=== PATIENT | male | born 1980 | race Caucasian/White ===

== ENCOUNTER 2018-09-12 06:05 | Emergency (ER) | payer OTHER ==
[2018-09-12 06:30] VITALS: BMI 21.7
[2018-09-12] MEDS ORDERED: ONDANSETRON 4 MG/2 ML VIAL IVPUSH ONE (06:36)
[2018-09-12 06:57] LABS: BASO % 0.3 % (0-2.0); EOS % 0.7 % (0-4.5); HEMATOCRIT 39.6 % (35.4-49); HEMOGLOBIN 13.2 GM/dL (11.7-16.9); LYMPH % 16.1 % (8-40); MCH 28.8 pg (25.7-33.7); MCHC 33.5 g/dl (32.0-35.9); MEAN PLT VOLUME 9.2 fl (7.5-11.1); MONO % 10.5 % (3.8-10.2); NEUT % 72.4 % (42.8-82.8); PLATELET COUNT 211 K/MM3 (134-434); RDW 13.4 % (11.9-15.9); WHITE BLOOD COUNT 11.3 K/mm3 (4.0-10.0)
[2018-09-12 07:23] LABS: ALK PHOS 104 U/L (45-117); AMYLASE 87 U/L (25-115); ANION GAP 8 MMOL/L (8-16); BILIRUBIN,TOTAL 0.4 mg/dL (0.2-1); BLOOD UREA NITROGEN 11 mg/dL (7-18); CALCIUM 8.8 mg/dL (8.5-10.1); CHLORIDE 100 mmol/L (98-107); CO2 27 mmol/L (21-32); CREATININE 0.9 mg/dL (0.55-1.3); GLUCOSE,RANDOM 113 mg/dL (74-106); LIPASE 135 U/L (73-393); POTASSIUM 3.2 mmol/L (3.5-5.1); SGOT/AST 32 U/L (15-37); SGPT/ALT 50 U/L (13-61); SODIUM 135 mmol/L (136-145); TOT PROT 7.3 g/dl (6.4-8.2)
--- NOTE | 2018-09-12 07:51 | PDOC ---
History of Present Illness - General Chief Complaint: Vomiting/Diarrhea Stated Complaint: VOMITING,DIARRHEA,ABDOMINAL PAIN Time Seen by Provider: 09/12/18 07:51 History Source: Patient Exam Limitations: No Limitations - History of Present Illness Initial Comments: 38 yo M w no sig pmh presents with 1 day of nausea, vomiting, and abdominal pain after drinking what he thinks was 'bad milk.' Patient states he had milk with his coffee last night and ever since he has vomited 6 times and had 3 episodes of diarrhea. Both the diarrhea and vomitus was non-bloody. He denies having fever but endorses chills. He says his abdominal pain is all over his abdomen and not worse in any one specific region. He did not take any medications to make him feel better before the ED. When I evaluated him he had already received zofran and is no longer nauseous. He went to urgent care yesterday and they prescribed him azithromycin for 5 days. He denies any chest pain, SOB, difficulty breathing, fevers, back pain, headache , blurry vision, neck pain, dysuria, frequency, urgency, leg pain, recent travel. PCP: Faheem Bañuelos Allergies: NKA, NKDA Social Hx: Denies smoking, drinking or other substance usage. Past History - Past Medical History Allergies/Adverse Reactions: Allergies Allergy/AdvReac Type Severity Reaction Status Date / Time No Known Allergies Allergy Verified 09/12/18 06:19 Home Medications: Ambulatory Orders NK [No Known Home Medication] 09/12/18 COPD: No - Immunization History Immunization Up to Date: Yes - Suicide/Smoking/Psychosocial Hx Smoking History: Current some day smoker Have you smoked in the past 12 months: No Number of Cigarettes Smoked Daily: 2 Information on smoking cessation initiated: No Hx Alcohol Use: No Drug/Substance Use Hx: No Review of Systems - Review of Systems Able to Perform ROS?: Yes Comments:: CONSTITUTIONAL: Present: Chills Absent: fever, no fatigue EYES: Absent: visual changes ENT: Absent: ear pain, no sore throat CARDIOVASCULAR: Absent: chest pain, no palpitations RESPIRATORY: Absent: cough, no SOB GI: Present: Abdominal pain, nausea, vomiting, diarrhea Absent: no constipation GENITOURINARY: Absent: dysuria, no frequency, no hematuria MUSKULOSKELETAL: Absent: back pain, no arthralgia, no myalgia SKIN: Absent: rash NEURO: Absent: headache *Physical Exam - Vital Signs Last Vital Signs Temp Pulse Resp BP Pulse Ox 98.8 F 62 18 169/89 100 09/12/18 06:19 09/12/18 06:19 09/12/18 06:19 09/12/18 06:19 09/12/18 06:19 - Physical Exam Comments: GENERAL: Well-appearing, well-nourished. No apparent distress. HEENT: Normocephalic, atraumatic. PERRL, EOM intact. CARDIOVASCULAR: Normal S1, S2. Regular rate and rhythm. PULMONARY: Clear to auscultation bilaterally. ABDOMEN: diffusely uncomfortable. Soft, non-distended. Increased bowel sounds. No rebound or guarding. EXTREMITIES: Normal ROM in all four extremities. No gross deformities. SKIN: Warm, dry. No rash NEUROLOGICAL: No focal neurological deficits. Moderate Sedation - Procedure Monitoring Vital Signs: Procedure Monitoring Vital Signs Temperature 98.8 F 09/12/18 06:19 Pulse Rate 62 09/12/18 06:19 Respiratory Rate 18 09/12/18 06:19 Blood Pressure 169/89 09/12/18 06:19 O2 Sat by Pulse Oximetry (%) 100 09/12/18 06:19 ED Treatment Course - LABORATORY CBC & Chemistry Diagram: 09/12/18 06:26 09/12/18 06:26 - ADDITIONAL ORDERS Additional order review: Laboratory Results 09/12/18 06:26 Sodium 135 L Potassium 3.2 L Chloride 100 Carbon Dioxide 27 Anion Gap 8 BUN 11 Creatinine 0.9 Creat Clearance w eGFR > 60 Random Glucose 113 H Calcium 8.8 Total Bilirubin 0.4 AST 32 ALT 50 Alkaline Phosphatase 104 Total Protein 7.3 Albumin 4.0 Total Amylase 87 Lipase 135 09/12/18 06:26 RBC 4.60 MCV 86.0 MCHC 33.5 RDW 13.4 MPV 9.2 Neutrophils % 72.4 Lymphocytes % 16.1 Monocytes % 10.5 H Eosinophils % 0.7 Basophils % 0.3 - Medications Given in the ED: ED Medications Discontinued Medications Generic Name Dose Route Start Last Admin Trade Name Freq PRN Reason Stop Dose Admin Ondansetron HCl 4 mg 09/12/18 06:36 09/12/18 06:44 Zofran Injection IVPUSH 12/30/18 06:37 4 mg ONCE ONE Administration Medical Decision Making - Medical Decision Making 38 yo M w no sig pmh presents with 1 day of nausea, vomiting, and abdominal pain after drinking what he thinks was 'bad milk.' Patient states he had milk with his coffee last night and ever since he has vomited 6 times and had 3 episodes of diarrhea. DDx IBNLT: Gastroenteritis vs food poisoning, pancreatitis, IBD, dehydration, cholecystitis, appendicitis, diverticulitis Plan: Cbc, Cmp, lipase, IV hydration, zofran, acetaminophen, re-assess. Labs unremarkable, lipase WNL. - Patient feels much better after meds and IV hydration. - He states he would like to get out of here and can follow up with his PCP in the next 2 days. Will DC w pcp FU. *DC/Admit/Observation/Transfer Diagnosis at time of Disposition: Food poisoning - Discharge Dispostion Disposition: HOME Condition at time of disposition: Improved Decision to Admit order: No - Referrals Referrals: Faheem Bañuelos [Primary Care Provider] - - Patient Instructions Printed Discharge Instructions: How to Avoid Food Poisoning, DI for Food Poisoning Additional Instructions: You came into the ER with abdominal pain, nausea, and vomiting. You felt much better after taking zofran, tylenol and IV fluids. We believe you experienced food poisoning. Drink plenty of fluids and take tylenol or motrin for pain control. Please make sure to schedule a follow up appointment with your primary doctor in the next 2 to 3 days to make sure you are feeling okay and getting better. Please come back to the ER if your pain worsens, you start vomiting profusely, develop a high feer, severe abdominal pain, or have any other new or worsening concerns. Thank you for coming to the [facility] ER. We hope you feel better soon! Print Language: MAORI - Post Discharge Activity
[2018-09-12] MEDS ORDERED: ACETAMINOPHEN 1000 MG/100 ML VIAL (NON FORMULARY) IVPB ONE (07:54)
[2018-09-12] MEDS ORDERED: SODIUM CHLORIDE 0.9% 500 ML INFUS.BAG IV ONE (07:54)
[2018-09-12] MEDS ORDERED: POTASSIUM CHLORIDE TABS 20 MEQ TABLET.ER (FP) PO ONE (10:02)
--- NOTE | 2018-09-12 10:02 | PDOC ---
Attending Attestation - Resident Resident Name: ConcepciónJorge - ED Attending Attestation I have performed the following: I have examined & evaluated the patient, The case was reviewed & discussed with the resident, I agree w/resident's findings & plan, Exceptions are as noted - Medical Decision Making 09/12/18 10:02 I, Dr. Gillian Barney DO, attest that this document has been prepared under my direction and personally reviewed by me in its entirety. I further attest, that it accurately reflects all work, treatment, procedures and medical decision -making performed by me. 09/12/18 10:12 a/p: 38yo male with n/v/d -sick contacts at home -given zofran and ivf -pt feeling better -no vomiting in the ED -labs show mildly elevated wbc - suspect viral gastroenteritis vs food poisoning from bad milk used last night -will replace potassium -pt requesting to go home, states feeling better, tolerated PO in the ED -stbale for dc to home <Gillian Barney - Last Filed: 09/12/18 10:11> - HPI HPI: 09/12/18 10:47 The patient is a 38 year old male, with no significant PMH, who presents to the emergency department complaining of nausea, vomiting and abdominal pain that began approximately 1 day ago. The patient states he thinks he had bad milk with his coffee last night when he started to endorses associated symptoms of chills, diffuse abdomen pain, 6 times of non bilious and non bloody vomiting and 3 episodes of diarrhea. The patient denies chest pain, shortness of breath, headache and dizziness. Denies fever and constipation. Denies dysuria, frequency, urgency and hematuria. Allergies: NKDA Past surgical history:None reported Social history: None reported PCP: Faheem Bañuelos Documentation prepared by Simona Mijares, acting as medical research associate for Gillian Barney DO, MD. - Physicial Exam PE: 09/12/18 10:47 GENERAL: Awake, alert, and fully oriented, in no acute distress HEAD: No signs of trauma EYES: PERRLA, EOMI, sclera anicteric, conjunctiva clear ENT: Auricles normal inspection, hearing grossly normal, nares patent, oropharynx clear without exudates. Moist mucosa NECK: Normal ROM, supple, no lymphadenopathy, JVD, or masses LUNGS: Breath sounds equal, clear to auscultation bilaterally. No wheezes, and no crackles HEART: Regular rate and rhythm, normal S1 and S2, no murmurs, rubs or gallops ABDOMEN: Soft, nontender, normoactive bowel sounds. No guarding, no rebound. No masses EXTREMITIES: Normal range of motion, no edema. No clubbing or cyanosis. No cords, erythema, or tenderness NEUROLOGICAL: Cranial nerves II through XII grossly intact. Normal speech. SKIN: Warm, Dry, normal turgor, no rashes or lesions noted. Documentation prepared by Simona Mijares, acting as medical research associate for Gillian Barney DO, MD. <Simona Mijares - Last Filed: 09/12/18 10:48>
[2018-09-12 10:26] VITALS: BP 152/82; PULSE 67; TEMP 98.6
== END 2018-09-12 10:26 | disposition home or self-care (01) ==
LOC: JER 06:05
PROC: 3E033GC Introduction of Other Therapeutic Substance into Peripheral Vein, Percutaneous Approach (ICD-10-PCS; principal; 2018-09-12)
DX: T62.8X1A Toxic effect of other specified noxious substances eaten as food, accidental (unintentional), initial encounter (principal); Y92.018 Other place in single-family (private) house as the place of occurrence of the external cause
CPT/HCPCS: 36415; 80053; 82150; 83690; 85025; 99281-25; J0131

== ENCOUNTER 2019-05-06 13:12 | Day surgery (SDC) | payer OTHER ==
[2019-05-06 13:16] VITALS: BMI 21.9
[2019-05-06] MEDS ORDERED: KETOROLAC TROMETHAMINE 30 MG/1 ML VIAL IVPUSH ONE (14:00)
[2019-05-06] MEDS ORDERED: ONDANSETRON 4 MG/2 ML VIAL IVPUSH ONE (14:00)
--- NOTE | 2019-05-06 14:01 | PDOC ---
History of Present Illness - General Chief Complaint: Pain, Acute Stated Complaint: ABD PAIN Time Seen by Provider: 05/06/19 13:56 History Source: Patient Exam Limitations: No Limitations Past History - Travel Traveled outside of the country in the last 30 days: Yes If so, where?: Close contact w/someone who was outside of country & ill: No - Past Medical History Allergies/Adverse Reactions: Allergies Allergy/AdvReac Type Severity Reaction Status Date / Time No Known Allergies Allergy Verified 05/06/19 13:16 Home Medications: Ambulatory Orders NK [No Known Home Medication] 09/12/18 COPD: No - Immunization History Immunization Up to Date: Yes - Suicide/Smoking/Psychosocial Hx Smoking History: Never smoked Have you smoked in the past 12 months: No Number of Cigarettes Smoked Daily: 2 Hx Alcohol Use: No Drug/Substance Use Hx: No Review of Systems - Review of Systems Able to Perform ROS?: Yes Comments:: 05/06/19 14:52 CONSTITUTIONAL: Absent: fever, chills, diaphoresis, generalized weakness, malaise, loss of appetite HEENT: Absent: rhinorrhea, nasal congestion, throat pain, throat swelling, difficulty swallowing, mouth swelling, ear pain, eye pain, visual Changes CARDIOVASCULAR: Absent: chest pain, loss of consciousness, palpitations, irregular heart rate, peripheral edema RESPIRATORY: Absent: cough, shortness of breath, dyspnea with exertion, orthopnea, wheezing, stridor, hemoptysis GASTROINTESTINAL: Present: abdominal pain, nausea, vomiting Absent: abdominal pain, abdominal distension, nausea, vomiting, diarrhea, constipation, melena, hematochezia GENITOURINARY: Absent: dysuria, frequency, urgency, hesitancy, hematuria, flank pain, genital pain MUSCULOSKELETAL: Absent: myalgia, arthralgia, joint swelling SKIN: Absent: rash, itching, pallor HEMATOLOGIC/IMMUNOLOGIC: Absent: easy bleeding, easy bruising, lymphadenopathy, frequent infections ENDOCRINE: Absent: unexplained weight gain, unexplained weight loss, heat intolerance, cold intolerance NEUROLOGIC: Absent: headache, focal weakness or paresthesias, dizziness, unsteady gait, seizure, mental status changes, bladder or bowel incontinence PSYCHIATRIC: Absent: anxiety, depression, suicidal or homicidal ideation, hallucinations. Is the patient limited [place] proficient: No *Physical Exam - Vital Signs Last Vital Signs Temp Pulse Resp BP Pulse Ox 98.4 F 54 L 16 150/77 100 05/06/19 13:13 05/06/19 13:13 05/06/19 13:13 05/06/19 13:13 05/06/19 13:13 - Physical Exam Comments: 05/06/19 14:53 GENERAL: Well developed, well nourished. Awake and alert. Moderate distress, pt rolling on exam bed, cannot get comfortable. HEENT: Normocephalic, atraumatic. PERRLA, EOMI. No conjunctival pallor. Sclera are non- icteric. Moist mucous membranes. Oropharynx is clear. NECK: Supple. Full ROM. No JVD. Carotid pulses 2+ and symmetric, without bruits. No thyromegaly. No lymphadenopathy. CARDIOVASCULAR: Regular rate and rhythm. No murmurs, rubs, or gallops. Distal pulses are 2+ and symmetric. PULMONARY: No evidence of respiratory distress. Lungs clear to auscultation bilaterally. No wheezing, rales or rhonchi. ABDOMINAL: TTP of the RLQ, suprapubic area. (+) guarding. Soft. Non-distended. No rebound. No organomegaly. Normoactive bowel sounds. MUSCULOSKELETAL Normal range of motion at all joints. No bony deformities or tenderness. No CVA tenderness. EXTREMITIES: No cyanosis. No clubbing. No edema. No calf tenderness. SKIN: Warm and dry. Normal capillary refill. No rashes. No jaundice. NEUROLOGICAL: Alert, awake, appropriate. Cranial nerves 2-12 intact. No deficits to light touch and temperature in face, upper extremities and lower extremities. No motor deficits in the in face, upper extremities and lower extremities. Normoreflexic in the upper and lower extremities. Normal speech. Toes are down- going bilaterally. Gait is normal without ataxia. PSYCHIATRIC: Cooperative. Good eye contact. Appropriate mood and affect. ED Treatment Course - LABORATORY CBC & Chemistry Diagram: 05/07/19 06:00 05/07/19 06:00 Medical Decision Making - Medical Decision Making 05/06/19 14:56 The patient is a 38 y/o M with no PMH who presents to the ER today for lower abdominal pain. The patient states that his pain started around 9 am this morning. He last had coffee at 8:30 this morning. atient states that he has been throwing up and nauseous. He states he can't sit still due to the pain. Denies fevers, chills, shortness of breath, diarrhea, constipation, frequency, urgency and hemturia A/P: R lower abdominal pain/flank pain On exam pt TTP of the RLQ and R flank. Pt unable to sit still DDX: Kidney stone, appendicitis, diverticulitis, colitis, less likely UTI, viral illness Labs, CTAP Renal, urine, pain meds, ordered WBC count 14.9 with L shift, other labs are grossly normal. No UTI CTAP wet read with no stones; suspect appendicitis Pt pending official read Sign out given to DEL Rocha *DC/Admit/Observation/Transfer Diagnosis at time of Disposition: Appendicitis, acute - Discharge Dispostion Condition at time of disposition: Improved - Referrals - Patient Instructions - Post Discharge Activity
[2019-05-06] MEDS ORDERED: KETOROLAC TROMETHAMINE 30 MG/1 ML VIAL IM ONE (14:04)
[2019-05-06] MEDS ORDERED: SODIUM CHLORIDE 1,000 ML IV STA (14:05)
[2019-05-06] MEDS ORDERED: KETOROLAC TROMETHAMINE 30 MG/1 ML VIAL ONE ×2 (14:05→14:09)
[2019-05-06] MEDS ORDERED: ONDANSETRON 4 MG/2 ML VIAL ONE (14:09)
[2019-05-06] MEDS ORDERED: morphine CARPU-JECT 4 MG/1 ML DISP.SYRIN IVPUSH ONE (14:52)
[2019-05-06] MEDS ORDERED: ACETAMINOPHEN 1000 MG/100 ML VIAL (NON FORMULARY) IVPB ONE (14:52)
[2019-05-06] MEDS ORDERED: morphine SULFATE 4 MG/ML VIAL ONE (15:16)
[2019-05-06] MEDS ORDERED: ACETAMINOPHEN INJECTION 100 ML IVPB ONE ×2 (15:16→21:09)
[2019-05-06 15:19] LABS: BASO % 0.2 % (0-2.0); EOS % 0.1 % (0-4.5); HEMATOCRIT 40.2 % (35.4-49); HEMOGLOBIN 13.7 GM/dL (11.7-16.9); LYMPH % 6.9 % (8-40); MCH 29.9 pg (25.7-33.7); MCHC 34.1 g/dl (32.0-35.9); MEAN CELL VOLUME 87.7 fl (80-96); MEAN PLT VOLUME 9.3 fl (7.5-11.1); MONO % 3.4 % (3.8-10.2); NEUT % 89.4 % (42.8-82.8); PLATELET COUNT 216 K/MM3 (134-434); RBC 4.59 M/mm3 (4.00-5.60); RDW 13.6 % (11.9-15.9); WHITE BLOOD COUNT 14.9 K/mm3 (4.0-10.0)
[2019-05-06 15:23] LABS: URINE APPEARANCE CLOUDY; URINE BILIRUBIN NEGATIVE (NEGATIVE); URINE COLOR YELLOW; URINE GLUCOSE (UA) NEGATIVE (NEGATIVE); URINE KETONE NEGATIVE (NEGATIVE); URINE LEUK ESTERASE NEGATIVE (NEGATIVE); URINE NITRITE NEGATIVE (NEGATIVE); URINE PROTEIN NEGATIVE (NEGATIVE); URINE UROBILINOGEN 0.2 mg/dL (0.2-1.0)
[2019-05-06 15:31] LABS: INR 0.99 (0.83-1.09); PROTHROMBIN TIME (PATIENT) 11.7 SEC (9.7-13.0)
[2019-05-06 15:51] LABS: ALBUMIN 4.2 g/dl (3.4-5.0); BILIRUBIN,TOTAL 0.8 mg/dL (0.2-1); CREATININE 0.9 mg/dL (0.55-1.3); POTASSIUM 3.4 mmol/L (3.5-5.1); TOT PROT 7.8 g/dl (6.4-8.2)
--- NOTE | 2019-05-06 16:47 | PDOC ---
*Physical Exam - Vital Signs Last Vital Signs Temp Pulse Resp BP Pulse Ox 98.4 F 54 L 16 150/77 100 05/06/19 13:13 05/06/19 13:13 05/06/19 13:13 05/06/19 13:13 05/06/19 13:13 - Physical Exam General Appearance: Yes: Nourished, Appropriately Dressed HEENT: positive: Normal ENT Inspection Neck: positive: Supple Respiratory/Chest: positive: Lungs Clear, Normal Breath Sounds. negative: Respiratory Distress, Accessory Muscle Use Cardiovascular: positive: Regular Rhythm, Regular Rate Musculoskeletal: positive: Normal Inspection Extremity: positive: Normal Inspection Integumentary: positive: Normal Color Neurologic: positive: Fully Oriented, Alert, Normal Response ED Treatment Course - LABORATORY CBC & Chemistry Diagram: 05/06/19 15:06 05/06/19 15:06 - ADDITIONAL ORDERS Additional order review: Laboratory Results 05/06/19 05/06/19 05/06/19 15:06 15:06 15:06 PT with INR 11.70 INR 0.99 Sodium 137 Potassium 3.4 L Chloride 101 Carbon Dioxide 28 Anion Gap 8 BUN 13.0 Creatinine 0.9 Est GFR (CKD-EPI)AfAm 125.13 Est GFR (CKD-EPI)NonAf 107.97 Random Glucose 102 Calcium 9.0 Total Bilirubin 0.8 AST 33 ALT 37 Alkaline Phosphatase 114 Total Protein 7.8 Albumin 4.2 Urine Color Yellow Urine Appearance Cloudy Urine pH 7.0 Ur Specific Comins 1.020 Urine Protein Negative Urine Glucose (UA) Negative Urine Ketones Negative Urine Blood Negative Urine Nitrite Negative Urine Bilirubin Negative Urine Urobilinogen 0.2 Ur Leukocyte Esterase Negative 05/06/19 15:06 RBC 4.59 MCV 87.7 MCHC 34.1 RDW 13.6 MPV 9.3 Neutrophils % 89.4 H D Lymphocytes % 6.9 L D Monocytes % 3.4 L Eosinophils % 0.1 D Basophils % 0.2 - Medications Given in the ED: ED Medications Discontinued Medications Generic Name Dose Route Start Last Admin Trade Name Freq PRN Reason Stop Dose Admin Acetaminophen 1,000 mg 05/06/19 14:52 05/06/19 15:26 Ofirmev Injection - IVPB 05/06/19 14:53 1,000 mg ONCE ONE Administration Sodium Chloride 1,000 mls @ 1,000 mls/hr 05/06/19 14:05 05/06/19 15:26 Normal Saline - IV 05/06/19 15:04 1,000 mls/hr ASDIR STA Administration Ketorolac Tromethamine 30 mg 05/06/19 14:00 05/06/19 15:27 Toradol Injection - IVPUSH 05/06/19 14:01 Not Given ONCE ONE Ketorolac Tromethamine 30 mg 05/06/19 14:04 05/06/19 15:12 Toradol Injection - IM 05/06/19 14:05 30 mg ONCE ONE Administration Morphine Sulfate 4 mg 05/06/19 14:52 05/06/19 15:26 Morphine Injection - IVPUSH 05/06/19 14:53 4 mg ONCE ONE Administration Ondansetron HCl 4 mg 05/06/19 14:00 05/06/19 15:26 Zofran Injection IVPUSH 05/06/19 14:01 4 mg ONCE ONE Administration Medical Decision Making - Medical Decision Making 05/06/19 17:04 I resumed care of this 38-year-old male with no medical history present with complaint of lower abdominal pain with nausea and vomiting since this morning. Patient reported improvement in abdominal pain with IV Toradol and Zofran given by previous team. CBC shows elevated WBC of 16. Abdominal CT shows appendicitis. Called and spoke to surgical Dr. Lou who advised to admit the patient on the hospitalist for appendicitis management and was see patient for management of appendicitis and ordered for admission in place. Microblog sent to hospitalist team placed for admission 05/06/19 17:45 Patient seen by hospitalist team and admitted under Tommie Christine. called by OR nurse to prep patient for surgery as Dr. Lou will be operating for appendicitis tonight. Plan discussed with patient and pt agrees for surgery. pt NPO for 7hrs now *DC/Admit/Observation/Transfer Diagnosis at time of Disposition: Appendicitis, acute Qualifiers: Acute appendicitis type: unspecified acute appendicitis type Qualified Code(s) : K35.80 - Unspecified acute appendicitis - Discharge Dispostion Condition at time of disposition: Stable Decision to Admit order: Yes - Referrals - Patient Instructions - Post Discharge Activity
--- NOTE | 2019-05-06 17:16 | CONSULT ---
- Consultation REQUESTING PROVIDER: jA MATHIS CONSULT REQUEST: We have been asked to surgically evaluate this patient for acute appendicitis. PCP: HISTORY OF PRESENT ILLNESS: 38 y/o male in his USOH presented w/RLQ abdominal pain which started this morning; he had nausea w/o vomting and has sharp pain increased by moving around and better while lying still; no radiation from the RLQ; it did start as generalized; he denies injury or any other GI/ c/o; he works as a cook. PMHx: none PSHx: none Home Medications Medication Instructions Recorded NK [No Known Home Medication] 09/12/18 Allergies Allergy/AdvReac Type Severity Reaction Status Date / Time No Known Allergies Allergy Verified 05/06/19 13:16 REVIEW OF SYSTEMS: CONSTITUTIONAL: Absent: fever, chills, diaphoresis, generalized weakness, malaise, loss of appetite, weight change CARDIOVASCULAR: Absent: chest pain, syncope, palpitations, irregular heart rate, lightheadedness , peripheral edema RESPIRATORY: Absent: cough, shortness of breath, dyspnea with exertion, wheezing, stridor, hemoptysis GASTROINTESTINAL: Absent: abdominal pain, abdominal distension, nausea, vomiting, diarrhea, constipation, melena, hematochezia GENITOURINARY: Absent: dysuria, frequency, urgency, hesitancy, hematuria, flank pain, genital pain MUSCULOSKELETAL: Absent: myalgia, arthralgia, joint swelling, back pain, neck pain SKIN: Absent: rash, itching, pallor HEMATOLOGIC/IMMUNOLOGIC: Absent: easy bleeding, easy bruising, lymphadenopathy NEUROLOGIC: Absent: headache, focal weakness, paresthesias, dizziness, unsteady gait, seizure, mental status changes, bladder or bowel incontinence PSYCHIATRIC: Absent: anxiety, depression, suicidal or homicidal ideation, hallucinations. PHYSICAL EXAM: GENERAL: Awake, alert, and fully oriented, in no acute distress. HEAD: Normal with no signs of trauma. EYES: PERRL, sclera anicteric, conjunctiva clear. NECK: Normal ROM, supple without lymphadenopathy, JVD, or masses. ABDOMEN: Soft, tender RLQ to palpation, not distended, normoactive bowel sounds , voluntary guarding, rebound is present, no masses, no hernias. Rovsings' psoas and obturator signs are present. No organomegaly. MUSCULOSKELETAL: Normal ROM at all joints. No bony deformities or tenderness. No CVA tenderness. UPPER EXTREMITIES: 2+ pulses, warm, well-perfused. No cyanosis. Cap refill <2 seconds. No peripheral edema. LOWER EXTREMITIES: 2+ pulses, warm, well-perfused. No calf tenderness. No peripheral edema. NEUROLOGICAL: Normal speech, gait not observed. PSYCH: Cooperative. Good eye contact. Appropriate mood and affect. SKIN: Warm, dry, normal turgor, no rashes or lesions noted. Vital Signs Temperature 98.4 F 05/06/19 13:13 Pulse Rate 54 L 05/06/19 13:13 Respiratory Rate 16 05/06/19 13:13 Blood Pressure 150/77 05/06/19 13:13 O2 Sat by Pulse Oximetry (%) 100 05/06/19 13:13 Lab Results WBC 14.9 K/mm3 (4.0-10.0) H 05/06/19 15:06 RBC 4.59 M/mm3 (4.00-5.60) 05/06/19 15:06 Hgb 13.7 GM/dL (11.7-16.9) 05/06/19 15:06 Hct 40.2 % (35.4-49) 05/06/19 15:06 MCV 87.7 fl (80-96) 05/06/19 15:06 MCHC 34.1 g/dl (32.0-35.9) 05/06/19 15:06 RDW 13.6 % (11.9-15.9) 05/06/19 15:06 Plt Count 216 K/MM3 (134-434) 05/06/19 15:06 Sodium 137 mmol/L (136-145) 05/06/19 15:06 Potassium 3.4 mmol/L (3.5-5.1) L 05/06/19 15:06 Chloride 101 mmol/L (98-107) 05/06/19 15:06 Carbon Dioxide 28 mmol/L (21-32) 05/06/19 15:06 Anion Gap 8 MMOL/L (8-16) 05/06/19 15:06 BUN 13.0 mg/dL (7-18) 05/06/19 15:06 Creatinine 0.9 mg/dL (0.55-1.3) 05/06/19 15:06 Random Glucose 102 mg/dL (74-106) 05/06/19 15:06 Calcium 9.0 mg/dL (8.5-10.1) 05/06/19 15:06 INR 0.99 (0.83-1.09) 05/06/19 15:06 CT a/p reviewed and c/w acute appendicitis IMP: acute appendicitis PLAN: For lap appendectomy possible open; r/b/t/a's d/w the patient and informed consent for surgery obtained; d/w the patient in [place] and [place] and w/his present whom I have operated on in the past. Wesley Lou MD FACS
[2019-05-06] MEDS ORDERED: PIPERACILLIN/TAZOB 3.375 GM 3.375 GM in DEXTROSE 5%-WATER - 50 ML IVPB ONE (17:44)
[2019-05-06] MEDS ORDERED: PIPERACILLIN/TAZOB 3.375 GM 3.375 GM/50 ML BAG IVPB ONE (17:55)
[2019-05-06] MEDS ORDERED: MIDAZOLAM HCL 2 MG/2 ML SINGLE DOSE VIAL ONE (18:11)
[2019-05-06] MEDS ORDERED: SODIUM CHLORIDE 1,000 ML IV SCH (18:15)
[2019-05-06] MEDS ORDERED: ROCURONIUM BROMIDE 50 MG/5 ML SYRINGE ONE (18:20)
[2019-05-06] MEDS ORDERED: SUCCINYLCHOLINE CHLORIDE 200 MG/10 ML SYRINGE ONE (18:20)
[2019-05-06] MEDS ORDERED: PROPOFOL 20 ML ONE ×2 (18:20→19:13)
[2019-05-06] MEDS ORDERED: LIDOCAINE HCL/PF 2% SDV 5ML VIAL ONE (18:20)
[2019-05-06] MEDS ORDERED: DEXAMETHASONE SOD PHOSPHATE 4 MG/1 ML VIAL ONE (18:20)
--- NOTE | 2019-05-06 18:20 | PN ---
Teaching Attending Note Name of Resident: Gail Storey ATTENDING PHYSICIAN STATEMENT I saw and evaluated the patient. I reviewed the resident's note and discussed the case with the resident. I agree with the resident's findings and plan as documented. SUBJECTIVE: This is a 38 year old man with no significant past medical history who comes to the ED complaining of abdominal pain that started this morning. Pain is located in the RLQ and is associated with nausea and vomiting. He denies fever, chills, hematemesis, diarrhea, constipation, melena, rectal bleeding. OBJECTIVE: Vital Signs Period Temp Pulse Resp BP Sys/Antunez Pulse Ox Last 24 Hr 98.4 F 54 16 150/77 100 HEART: S1S2, RRR LUNGS: Clear ABDOMEN: Soft, non-distended, (+) RLQ tenderness, normal BS EXTREMITIES: No edema Laboratory Tests 05/06/19 05/06/19 05/06/19 15:06 15:06 15:06 WBC 14.9 H RBC 4.59 Hgb 13.7 Hct 40.2 MCV 87.7 MCH 29.9 MCHC 34.1 RDW 13.6 Plt Count 216 MPV 9.3 Absolute Neuts (auto) 13.3 H Neutrophils % 89.4 H D Lymphocytes % 6.9 L D Monocytes % 3.4 L Eosinophils % 0.1 D Basophils % 0.2 Nucleated RBC % 0 PT with INR 11.70 INR 0.99 Sodium 137 Potassium 3.4 L Chloride 101 Carbon Dioxide 28 Anion Gap 8 BUN 13.0 Creatinine 0.9 Est GFR (CKD-EPI)AfAm 125.13 Est GFR (CKD-EPI)NonAf 107.97 Random Glucose 102 Calcium 9.0 Total Bilirubin 0.8 AST 33 ALT 37 Alkaline Phosphatase 114 Total Protein 7.8 Albumin 4.2 Urine Color Urine Appearance Urine pH Ur Specific [place] Urine Protein Urine Glucose (UA) Urine Ketones Urine Blood Urine Nitrite Urine Bilirubin Urine Urobilinogen Ur Leukocyte Esterase 05/06/19 15:06 WBC RBC Hgb Hct MCV MCH MCHC RDW Plt Count MPV Absolute Neuts (auto) Neutrophils % Lymphocytes % Monocytes % Eosinophils % Basophils % Nucleated RBC % PT with INR INR Sodium Potassium Chloride Carbon Dioxide Anion Gap BUN Creatinine Est GFR (CKD-EPI)AfAm Est GFR (CKD-EPI)NonAf Random Glucose Calcium Total Bilirubin AST ALT Alkaline Phosphatase Total Protein Albumin Urine Color Yellow Urine Appearance Cloudy Urine pH 7.0 Ur Specific [place] 1.020 Urine Protein Negative Urine Glucose (UA) Negative Urine Ketones Negative Urine Blood Negative Urine Nitrite Negative Urine Bilirubin Negative Urine Urobilinogen 0.2 Ur Leukocyte Esterase Negative Home Medications Medication Instructions Recorded NK [No Known Home Medication] 09/12/18 ASSESSMENT AND PLAN: This is a 38 year old man with no significant past medical history who presented to the ED with RLQ abdominal pain, nausea, and vomiting. 1. Acute appendicitis - Surgery consult appreciated - Zosyn given in ED - NPO - IV fluid - Plan for appendectomy today 2. Hypokalemia - Replete potassium
[2019-05-06] MEDS ORDERED: BUPIVACAINE HCL/PF 0.5% (5 MG/ML) 30 ML VIAL IJ ONE ×2 (18:43→19:54)
[2019-05-06] MEDS ORDERED: ONDANSETRON 4 MG/2 ML VIAL IVPUSH PRN ×2 (18:53→20:31)
[2019-05-06] MEDS ORDERED: LACTATED RINGERS SOLUTION 1,000 ML IV SCH (19:00)
[2019-05-06] MEDS ORDERED: MORPHINE SULFATE 2 MG/ML VIAL IM PRN (19:25)
--- NOTE | 2019-05-06 19:25 | HP ---
Admitting History and Physical - Admission Chief Complaint: abominal pain- patient states that his abdominal pain started early this morning , he has never had this before- he had some episdoes of nausea and vomtiting - states that the pain was an 8/10 in his RLQ area and he was very unbearable that he came to the ED this has never happened to him before. he has no significant PMH History of Present Illness: patient states that his abdominal pain started early this morning , he has never had this before- he had some episdoes of nausea and vomtiting - states that the pain was an 8/10 in his RLQ area and he was very unbearable that he came to the ED this has never happened to him before. he has no significant PMH History Source: Patient Limitations to Obtaining History: No Limitations - Smoking History Smoking history: Never smoked Have you smoked in the past 12 months: No Aproximately how many cigarettes per day: 2 - Alcohol/Substance Use Hx Alcohol Use: No Home Medications - Allergies Allergies/Adverse Reactions: Allergies Allergy/AdvReac Type Severity Reaction Status Date / Time No Known Allergies Allergy Verified 05/06/19 13:16 - Home Medications Home Medications: Ambulatory Orders NK [No Known Home Medication] 09/12/18 Family Disease History - Family Disease History Family Disease History: Diabetes: Father, Heart Disease: Mother Review of Systems - Review of Systems Gastrointestinal: reports: Abdominal Pain Physical Examination Vital Signs: Vital Signs Temperature 98.7 F 05/06/19 18:00 Pulse Rate 63 05/06/19 18:00 Respiratory Rate 18 05/06/19 18:00 Blood Pressure 118/60 05/06/19 18:00 O2 Sat by Pulse Oximetry (%) 98 05/06/19 18:00 Constitutional: Yes: No Distress Cardiovascular: Yes: Regular Rate and Rhythm Respiratory: Yes: Regular, CTA Bilaterally Gastrointestinal: Yes: Soft, Tenderness, Epigastrium Labs: CBC, BMP 05/06/19 15:06 05/06/19 15:06 Problem List - Problems (1) Appendicitis, acute Code(s): K35.80 - UNSPECIFIED ACUTE APPENDICITIS Qualifiers: Acute appendicitis type: unspecified acute appendicitis type Qualified Code (s): K35.80 - Unspecified acute appendicitis Assessment/Plan patient currently in the OR for [facility]. navarrete on board NPO IVF received 1 dose of zosyn pre-procedure morphine prn for pain zofran prn for nausea Visit type - Emergency Visit Emergency Visit: Yes Care time: The patient presented to the Emergency Department on the above date and was hospitalized for further evaluation of their emergent condition. - New Patient This patient is new to me today: Yes Date on this admission: 05/06/19 - Critical Care Critical Care patient: No ATTENDING PHYSICIAN STATEMENT I saw and evaluated the patient. I reviewed the resident's note and discussed the case with the resident. I agree with the resident's findings and plan as documented. SUBJECTIVE: OBJECTIVE: ASSESSMENT AND PLAN:
[2019-05-06] MEDS ORDERED: NEOSTIGMINE METHYLSULFATE 0.5 MG/ML - 10 ML MDV ONE (19:52)
[2019-05-06] MEDS ORDERED: GLYCOPYRROLATE 0.2 MG/1 ML VIAL ONE (19:53)
--- NOTE | 2019-05-06 20:18 | OP ---
Operative Note - Note: Operative Date: 05/06/19 Pre-Operative Diagnosis: acute appendicitis Operation: laparoscopic appendectomy Findings: acute appendicitis Post-Operative Diagnosis: Same as Pre-op Surgeon: Wesley Lou Anesthesiologist/BLAST FURNACE BLOWER: Faheem Conti Anesthesia: General Specimens Removed: appendix Estimated Blood Loss (mls): 5 Drains & Tubes with Location: none
[2019-05-06] MEDS ORDERED: ACETAMINOPHEN 1000 MG/100 ML VIAL (NON FORMULARY) IVPB PRN (20:20)
[2019-05-06] MEDS: LACTATED RINGERS SOLUTION 1,000 ML IV SCH (21:30)
[2019-05-07] MEDS: LACTATED RINGERS SOLUTION 1,000 ML IV SCH (06:30)
[2019-05-07 07:16] LABS: BASO % 0.2 % (0-2.0); HEMATOCRIT 37.7 % (35.4-49); HEMOGLOBIN 12.9 GM/dL (11.7-16.9); LYMPH % 7.5 % (8-40); MCH 30.2 pg (25.7-33.7); MCHC 34.2 g/dl (32.0-35.9); MEAN CELL VOLUME 88.2 fl (80-96); MONO % 4.2 % (3.8-10.2); NEUT % 88.1 % (42.8-82.8); PLATELET COUNT 210 K/MM3 (134-434); RBC 4.28 M/mm3 (4.00-5.60); RDW 13.5 % (11.9-15.9); WHITE BLOOD COUNT 13.7 K/mm3 (4.0-10.0)
[2019-05-07 07:33] LABS: ALBUMIN 3.2 g/dl (3.4-5.0); BILIRUBIN,TOTAL 0.6 mg/dL (0.2-1); BLOOD UREA NITROGEN 11.4 mg/dL (7-18); CALCIUM 8.2 mg/dL (8.5-10.1); MAGNESIUM 1.8 mg/dL (1.8-2.4); TOT PROT 6.5 g/dl (6.4-8.2)
--- NOTE | 2019-05-07 10:23 | PN ---
Progress Note (short form) - Note Progress Note: Attending Surgeon POD#1 No c/o; tolerated diet and voided VSS AF abdo-soft; flat and tender at the port sites; o/w negative WBC 13.7 (trending down ) IMP: stable post op course. PLAN: May be d/c'ed to office f/u next week; a/a/u by the patient. Wesley Lou MD FACS
--- NOTE | 2019-05-07 10:40 | OP ---
DATE OF OPERATION: 05/06/2019 PREOPERATIVE DIAGNOSIS: Acute appendicitis. POSTOPERATIVE DIAGNOSIS: Acute appendicitis. PROCEDURE: Laparoscopic appendectomy. SURGEON: Wesley Lou MD ANESTHESIA: General. OPERATIVE FINDINGS: Acute supportive appendicitis without abscess or phlegmon or perforation or gangrene. DESCRIPTION OF PROCEDURE: The patient was placed on the operating table in supine position. After the induction of general anesthesia and placement of a Hardwick catheter, the patient's lower abdomen was prepped with ChloraPrep and draped in sterile fashion. A timeout was taken and pneumoperitoneum established above the umbilicus using a Kathy needle to an intraabdominal pressure of 15 mmHg. A 5- mm supraumbilical port was placed and laparoscopy carried out, and the previously noted findings were observed after the placement of a 12-mm suprapubic port and left lower quadrant 5-mm port. The appendix was identified at the confluence of the taenia of the cecum and the appendix grasped and the mesoappendix serially divided using the LigaSure device. Once the mesentery was cleared to the base of the appendix, a 45-mm purple load Endo MAURIZIO stapling device was fired across the base of the appendix. The appendix was then placed in an Endocatch and brought up through the abdominal wall. The suture line was examined for bleeding, of which there was none, and then the appendix was brought out through the suprapubic port without incident. Pneumoperitoneum was reestablished without evidence of bleeding, and then all port sites removed under laparoscopic vision without evidence of bleeding from the port sites. The pneumoperitoneum was evacuated, and all port sites were infiltrated with 0.5% Marcaine. The defect at the 12-mm suprapubic port site was closed with a single 0 Vicryl [id number] suture. All skin incisions were closed with field of vision in a subcuticular continuous fashion, followed by Steri-Strips and Band-Aid dressings, and the patient was aroused from general anesthesia and transferred to the postanesthesia care unit in stable condition, awake and alert. ESTIMATED BLOOD LOSS: 5 mL. REPLACEMENT: Crystalloid. DRAINS: None. SPECIMEN: Appendix to pathology. I, Wesley Lou, was physically present in the operating room from the time the patient was placed on the operating table until he was transferred to the postanesthesia care unit in my accompaniment. MD NEW Jamison/[id number] MTDD
[2019-05-07] MEDS: ACETAMINOPHEN 325 MG TABLET (FP) PO PRN ×2 (13:05→19:18)
--- NOTE | 2019-05-07 14:56 | DS ---
Physical Exam: SUBJECTIVE: Patient seen and examined. He has some incisional pain, otherwise he has no complaints. He is tolerating a diet and ambulating without difficulty. OBJECTIVE: Vital Signs Period Temp Pulse Resp BP Sys/Antunez Pulse Ox Last 24 Hr 97.5 F-98.7 F 55-83 14-20 98-130/46-75 98-100 PHYSICAL EXAM GENERAL: The patient is awake, alert, and fully oriented, in no acute distress. LUNGS: Breath sounds equal, clear to auscultation bilaterally, no wheezes, no crackles, no accessory muscle use. HEART: Regular rate and rhythm, S1, S2 without murmur, rub or gallop. ABDOMEN: Soft, nontender, nondistended, normoactive bowel sounds, no guarding, no rebound, no hepatosplenomegaly, no masses. EXTREMITIES: 2+ pulses, warm, well-perfused, no edema. LABS Laboratory Results - last 24 hr 05/06/19 05/06/19 05/06/19 15:06 15:06 15:06 WBC 14.9 H RBC 4.59 Hgb 13.7 Hct 40.2 MCV 87.7 MCH 29.9 MCHC 34.1 RDW 13.6 Plt Count 216 MPV 9.3 Absolute Neuts (auto) 13.3 H Neutrophils % 89.4 H D Lymphocytes % 6.9 L D Monocytes % 3.4 L Eosinophils % 0.1 D Basophils % 0.2 Nucleated RBC % 0 PT with INR 11.70 INR 0.99 Sodium 137 Potassium 3.4 L Chloride 101 Carbon Dioxide 28 Anion Gap 8 BUN 13.0 Creatinine 0.9 Est GFR (CKD-EPI)AfAm 125.13 Est GFR (CKD-EPI)NonAf 107.97 Random Glucose 102 Calcium 9.0 Magnesium Total Bilirubin 0.8 AST 33 ALT 37 Alkaline Phosphatase 114 Total Protein 7.8 Albumin 4.2 Urine Color Urine Appearance Urine pH Ur Specific [place] Urine Protein Urine Glucose (UA) Urine Ketones Urine Blood Urine Nitrite Urine Bilirubin Urine Urobilinogen Ur Leukocyte Esterase Blood Type Antibody Screen 05/06/19 05/06/19 05/07/19 15:06 15:06 06:00 WBC 13.7 H RBC 4.28 Hgb 12.9 Hct 37.7 MCV 88.2 MCH 30.2 MCHC 34.2 RDW 13.5 Plt Count 210 MPV 10.0 Absolute Neuts (auto) 12.1 H Neutrophils % 88.1 H Lymphocytes % 7.5 L Monocytes % 4.2 Eosinophils % 0.0 D Basophils % 0.2 Nucleated RBC % 0 PT with INR INR Sodium Potassium Chloride Carbon Dioxide Anion Gap BUN Creatinine Est GFR (CKD-EPI)AfAm Est GFR (CKD-EPI)NonAf Random Glucose Calcium Magnesium Total Bilirubin AST ALT Alkaline Phosphatase Total Protein Albumin Urine Color Yellow Urine Appearance Cloudy Urine pH 7.0 Ur Specific [place] 1.020 Urine Protein Negative Urine Glucose (UA) Negative Urine Ketones Negative Urine Blood Negative Urine Nitrite Negative Urine Bilirubin Negative Urine Urobilinogen 0.2 Ur Leukocyte Esterase Negative Blood Type O POSITIVE Antibody Screen Negative 05/07/19 06:00 WBC RBC Hgb Hct MCV MCH MCHC RDW Plt Count MPV Absolute Neuts (auto) Neutrophils % Lymphocytes % Monocytes % Eosinophils % Basophils % Nucleated RBC % PT with INR INR Sodium 139 Potassium 4.0 Chloride 106 Carbon Dioxide 23 Anion Gap 9 BUN 11.4 Creatinine 1.0 Est GFR (CKD-EPI)AfAm 110.17 Est GFR (CKD-EPI)NonAf 95.05 Random Glucose 117 H Calcium 8.2 L Magnesium 1.8 Total Bilirubin 0.6 AST 19 ALT 28 Alkaline Phosphatase 83 Total Protein 6.5 Albumin 3.2 L Urine Color Urine Appearance Urine pH Ur Specific [place] Urine Protein Urine Glucose (UA) Urine Ketones Urine Blood Urine Nitrite Urine Bilirubin Urine Urobilinogen Ur Leukocyte Esterase Blood Type Antibody Screen HOSPITAL COURSE: Date of Admission:05/06/19 Date of Discharge: 05/07/19 Minutes to complete discharge: 30 Discharge Summary Reason For Visit: ACUTE APPENDICITIS Current Active Problems Hypokalemia (Acute) Appendicitis, acute (Acute) Condition: Improved - Instructions Diet, Activity, Other Instructions: Dr. Lou Discharge Instructions Dear JING MCKEON, Post Operative Instructions Physical activity Resume your normal everyday activity as tolerated no heavy lifting or exercise until seen by your surgeon. You may walk unlimited amounts of and climb stairs. You may resume driving the car when you feel safe and comfortable behind the wheel. Wound care If you have a bandage, leave it on, and keep dry for 48 - 72 hours. After that time discard the outer bandage. If there are tapes on the skin under the outer bandage, leave them in place. They will peel off in the next 7 to 10 days. Do Not peel them off. You may shower 2 days after surgery. If there are tapes present on the skin, they can get wet. Diet There are no dietary restrictions. Eat healthy, high-fiber foods. Drink 6 to 8 glasses of liquid each day. This will assist in keeping your bowels are regular. Pain management You may take Tylenol or acetaminophen or Ibuprofen (for example, Motrin, Advil etc.) Any pain prescription medication ordered should be taken as prescribed for moderate to severe pain. Call Dr. Lou for any of the following: Severe pain not relieved by medication Fever of 101 or higher Excessive bleeding or drainage on dressing Inability to urinate Call the office at [phone] for a post operative appointment in 7 - 10 days. Referrals: Faheem Bañuelos [Primary Care Provider] - 1 Week Wesley Lou MD [Staff Physician] - 1 Week Disposition: HOME - Home Medications Comprehensive Discharge Medication List: Ambulatory Orders NK [No Known Home Medication] 09/12/18
[2019-05-07 17:42] VITALS: TEMP 98.2
[2019-05-07 18:42] VITALS: BP 119/61; PULSE 66
--- NOTE | 2019-05-11 09:48 | PATH ---
Surgical Pathology Report Patient Name: JING MCKEON [facility]. Rec. #: [id number] /Age/Gender: 1980 (Age: 38) / M Account: [id number] Location: AMBULATORY SURG Taken: 05/06/2019 Received: 05/09/2019 Reported: 05/11/2019 Physicians: Wesley Lou MD Specimen(s) Received APPENDIX Clinical History Acute appendicitis Final Diagnosis APPENDIX, APPENDECTOMY: ACUTE APPENDICITIS AND PERIAPPENDICITIS Electronically Signed Alicia Santiago M.D. Gross Description Specimen is received in formalin, labeled "appendix", and consists of an appendix, measuring 8.5cm in length and 1.0 in average diameter. The serosal (external) surface of the appendix is dull with focal white exudate. On opening the appendix contains bloody material. The mucosal surface is red-brown and ulcerated. Venue Coordinator sections are submitted in one cassette. GIOVANA/05/09/2019 uriel/05/09/2019
== END 2019-05-07 19:31 | disposition home or self-care (01) ==
LOC: JER 13:12 → SUATTDRO 17:07 → JASUSAT 17:07 → J8W 22:00 → JASUSAT 05-07 19:31
PROVIDERS: ATTEND Internal Medicine
PROC: 0DTJ4ZZ Resection of Appendix, Percutaneous Endoscopic Approach (ICD-10-PCS; principal; 2019-05-06 18:53)
DX: K35.80 Unspecified acute appendicitis (principal)
CPT/HCPCS: 36415; 74176-TC; 80053; 81003; 83735; 85025; 85610; 86850; 86900; 86901; 87086; 88304-TC; 94760; 99283-25; J0131; J7030

== ENCOUNTER 2020-07-27 15:01 | Emergency (ER) | payer OTHER ==
[2020-07-27 15:41] VITALS: BP 111/59; PULSE 70; TEMP 97.8; BMI 23.1
[2020-07-27] MEDS ORDERED: DIPHTH,PERTUSS(ACELL),TET 0.5 ML DISP.SYRIN IM ONE ×2 (16:25→16:27)
== END 2020-07-27 16:34 | disposition home or self-care (01) ==
LOC: JERFT 15:01
PROC: 3E0234Z Introduction of Serum, Toxoid and Vaccine into Muscle, Percutaneous Approach (ICD-10-PCS; principal; 2020-07-27)
DX: S01.81XA Laceration without foreign body of other part of head, initial encounter (principal)
CPT/HCPCS: 90715; 99284-25

== ENCOUNTER 2023-07-09 13:28 | Emergency (ER) | payer OTHER ==
[2023-07-09 13:34] VITALS: BP 117/67; PULSE 61; RESP 18; TEMP 98.5; BMI 27.1
[2023-07-09] MEDS ORDERED: ACETAMINOPHEN 500 MG TABLET (FP) PO ONE (13:44)
[2023-07-09] MEDS ORDERED: DIPHTH,PERTUSS(ACELL),TET 0.5 ML DISP.SYRIN IM ONE ×2 (13:44→14:02)
[2023-07-09] MEDS ORDERED: ACETAMINOPHEN 500 MG TABLET (FP) ONE (14:01)
== END 2023-07-09 14:55 | disposition home or self-care (01) ==
LOC: JERFT 13:28
PROC: 0HQFXZZ Repair Right Hand Skin, External Approach (ICD-10-PCS; principal; 2023-07-09)
PROC: 3E0234Z Introduction of Serum, Toxoid and Vaccine into Muscle, Percutaneous Approach (ICD-10-PCS; 2023-07-09)
DX: S61.210A Laceration without foreign body of right index finger without damage to nail, initial encounter (principal); W25.XXXA Contact with sharp glass, initial encounter
CPT/HCPCS: 73140-TC-RT-FY; 90715; 99283-25